=== PATIENT | female | born 1975 | race African-American/Black ===

== ENCOUNTER 2021-11-04 14:48 | Emergency (ER) | payer OTHER, SELFPAY ==
[2021-11-04 14:48] VITALS: BP 173/101; PULSE 69; RESP 16; TEMP 36.4; O2SAT 100
[2021-11-04] MEDS: diphenhydrAMINE HCl CAP 25 MG CAPSULE PO (15:51)
--- NOTE | 2021-11-04 16:01 | ED.ALLEREA ---
HPI - Allergic Reaction General Chief complaint: Allergic Reaction Stated complaint: STUNG BY BEE Time Seen by Provider: 11/04/21 15:27 Source: patient Mode of arrival: ambulatory Limitations: no limitations History of Present Illness HPI narrative: 46-year-old female with history of bee allergy presenting to the emergency department for evaluation after having a bee sting. Patient states she was at a park approximately 30 minutes prior to arrival when she sat on a swing and was stung on the posterior right thigh by a bee. Patient reports she does have a prior history of bee allergies. Patient does not have a current EpiPen. Related Data Allergies Allergy/AdvReac Type Severity Reaction Status Date / Time nut - unspecified Allergy Unknown FACIAL Verified 11/29/16 08:47 SWELLING AND HIVES shellfish derived Allergy Unknown Verified 04/29/16 14:36 Bumble Bee Allergy Unknown Uncoded 04/29/16 14:36 Review of Systems Review of Systems: CONSTITUTIONAL: Denies fever, chills, or sweats. EYES: Denies visual changes, redness, or discharge. ENT: Denies rhinorrhea, congestion, sore throat, or otalgia. CARDIOVASCULAR: Denies chest pain, palpitations, or edema. RESPIRATORY: Denies cough or dyspnea. GASTROINTESTINAL: Denies abdominal pain, nausea, vomiting, or diarrhea. GENITOURINARY: Denies dysuria or hematuria. SKIN: Bee sting right posterior thigh MUSCULOSKELETAL: Denies back pain, joint pain, or myalgia. NEUROLOGIC: Denies headache, numbness, or weakness. PMFSH Family History Family History (Updated 02/10/16 @ 23:19 by DOCTOR UNKNOWN) Father Hypertension Family history of heart disease in male family member before age 55 Mother Hypertension Family history of malignant neoplasm Sibling Family history of diabetes mellitus in first degree relative Grandparent Diabetes mellitus Social History Social History Smoking status: Never smoker Second hand tobacco smoke exposure: No Alcohol intake: current Exam Narrative: APPEARANCE: Well appearing, no pain, no distress, well-nourished. HEAD: normocephalic, atraumatic. EYES: PERRLA/EOMI, conjunctivae clear. THROAT: Pharynx clear, no exudate. NECK: Supple. No adenopathy, no masses. RESPIRATORY: Airway patent, respirations nonlabored. Clear to auscultation bilaterally, no rales, rhonchi, wheezing. CARDIOVASCULAR: Regular rate and rhythm without murmurs rubs or gallops. ABDOMINAL: Soft, nontender, nondistended, normal bowel sounds MUSCULOSKELETAL: Moves all extremities. Strength/ROM intact, No edema, No calf tenderness. NEURO: Alert. Cranial nerves II through XII intact. Grossly intact SKIN: Punctate bee sting on right posterior thigh. No stinger. Course Course Emergency Course: Patient was treated with Benadryl and was observed in the emergency department for additional 30 minutes. This was greater than 1 hour after the initial sting. Patient was still asymptomatic. Patient was provided a prescription for EpiPen's for outpatient. Patient was encouraged to have close follow-up with her primary care physician. Vital Signs Vital signs: Vital Signs Temperature 97.5 F L 11/04/21 14:48 Pulse Rate 69 11/04/21 14:48 Respiratory Rate 16 11/04/21 14:48 Blood Pressure 173/101 H 11/04/21 14:48 Pulse Oximetry 100 11/04/21 14:48 Temperature 97.5 F L 11/04/21 14:48 Pulse Rate 72 11/04/21 16:40 Respiratory Rate 16 11/04/21 16:40 Blood Pressure 173/101 H 11/04/21 14:48 Pulse Oximetry 100 11/04/21 16:40 MDM - Allergic Reaction Differential Diagnosis Differential diagnosis: Likely anaphylaxis and allergic reaction Discharge Plan Discharge Clinical Impression: Bee sting Qualifiers: Encounter type: initial encounter Injury intent: accidental or unintentional Qualified Code(s): T63.441A - Toxic effect of venom of bees, accidental (unintentional), initial encounter Patient Disposition: Home, Self-Care Condition: Stable
[2021-11-04 16:40] VITALS: PULSE 72; RESP 16; O2SAT 100
== END 2021-11-04 16:41 | disposition home or self-care (01) ==
PROVIDERS: Emergency Provider Emergency Medicine
DX: T63.441A Toxic effect of venom of bees, accidental (unintentional), initial encounter (principal)
CPT/HCPCS: 99283; A9270